=== PATIENT | male | born 1950 | race Hispanic/Latino ===

== ENCOUNTER 2017-09-29 09:53 | Observation (INO) | payer MEDICARE, BC ==
[2017-09-28 12:31] LABS: BASOPHILS % 0.7 % (0.0-1.0); EOSINOPHILS # (AUTO) 0.1 (0.0-0.4); EOSINOPHILS % 2.2 % (0.0-6.0); HEMATOCRIT 34.4 % (38.2-49.6); HEMOGLOBIN 11.4 g/dL (14.0-18.0); LYMPHOCYTES # (AUTO) 1.9 (1.0-3.2); LYMPHOCYTES % 32.2 % (18.0-39.1); MEAN CORPUSCULAR HEMOGLOBIN 30.4 pg (28-32); MEAN CORPUSCULAR HGB CONC 33.1 g/dL (31-35); MEAN CORPUSCULAR VOLUME 91.7 fL (81-99); MONOCYTES # (AUTO) 0.5 (0.2-0.8); MONOCYTES % 9.1 % (4.4-11.3); NEUTROPHILS # (AUTO) 3.2 (2.1-6.9); NEUTROPHILS % 55.6 % (38.7-80.0); PLATELET COUNT 99 x10e3/uL (140-360); RED BLOOD COUNT 3.75 x10e6/uL (4.3-5.7); RED CELL DISTRIBUTION WIDTH 14.1 % (11.7-14.4)
[2017-09-28 12:45] LABS: INR 1.21; PROTHROMBIN TIME 14.4 seconds (11.9-14.5)
[2017-09-28 12:54] LABS: ANION GAP 10.6 mmol/L (8-16); BLOOD UREA NITROGEN 16 mg/dL (7-26); BUN/CREATININE RATIO 14 (6-25); CALCIUM 9.5 mg/dL (8.4-10.2); CARBON DIOXIDE 24 mmol/L (22-29); CHLORIDE 108 mmol/L (98-107); CREATININE, SERUM 1.15 mg/dL (0.72-1.25); EST GLOMERULAR FILTRATION RATE > 60 ML/MIN (60-); GLUCOSE 213 mg/dL (74-118); POTASSIUM 4.6 mmol/L (3.5-5.1); SODIUM 138 mmol/L (136-145)
--- NOTE | 2017-09-28 12:58 | Diagnostic Imaging Report ---
PROCEDURE: Frontal and lateral views of the chest. COMPARISON: Chest 2 views 02/20/2015. INDICATIONS: PRE OPERATIVE CHEST X-RAY FOR C-SPINE SURGERY FINDINGS: Lines/tubes: None. Lungs: The lungs are well inflated and clear. There is no evidence of pneumonia or pulmonary edema. Pleura: There is no pleural effusion or pneumothorax. Heart and mediastinum: The heart and the mediastinum are normal. Bones: No acute bony abnormality. Degenerative changes of the thoracic spine. IMPRESSION: No acute radiographic abnormality. Dictated by: Alfredo Saucedo M.D. on 09/28/2017 at 12:59 Electronically approved by: Alfredo Saucedo M.D. on 09/28/2017 at 12:59
[~2017-09-29] VITALS: Ht 165.1 cm; Wt 83.7 kg
[~2017-09-29 09:53] MED LIST: ADVIL200 M1; BACITRACIN 50,000 UNIT VIAL ONE; BUPIVACAINE 0.5%/EPI 30 ML SDV INJ ONE; CEFAZOLIN SOD 1 GM VIAL ONE; CIPRO500 MG PO; FLOMAX0.4 MG PO; GELATIN SPONGE SZ 100 ONE; GERITOL COMPLE1 EACH PO; HAWTHORN PO; HAWTHORN150 MG; LOSARTAN POTAS100 MG PO; LOSARTAN POTASS25 MG PO; MEGA RED PO; METRONIDAZOLE500 MG PO; PRO-AIR PO; TERAZOSIN HCL1 MG PO; THROMBIN FOR SOLN 5,000 UNIT VIAL ONE
--- OUTSIDE RECORDS SUMMARY | 2017-09-29 09:55 | XMS REPORT ---
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 Allergies, Adverse Reactions, Alerts This patient has no known allergies or adverse reactions. Medications This patient has no known medications. Results Test Description Test Time Test Comments Text Results Atomic Results Result Comments CHEST 2 VIEWS [place] [address] Patient Name: SUSANA LINDER MR #: [id number] : 1950 Age/Sex: 66/M Req #: [id number] Adm Physician: Ordered by: VALENTIN RUST MD Report #: [id number] Location: OR Room/Bed: Procedure: [id number] DX/CHEST 2 VIEWS Exam Date: Exam Time: REPORT STATUS: Signed PROCEDURE: Frontal and lateral views of the chest. COMPARISON: Chest 2 views 02/20/2015. INDICATIONS: PRE OPERATIVE CHEST X-RAY FOR C-SPINE SURGERY FINDINGS: Lines/tubes: None. Lungs: The lungs are well inflated and clear. There is no evidence of pneumonia or pulmonary edema. Pleura: There is no pleural effusion or pneumothorax. Heart and mediastinum: The heart and the mediastinum are normal. Bones: No acute bony abnormality. Degenerative changes of the thoracic spine. IMPRESSION: No acute radiographic abnormality. Dictated by: José Miguel Saucedo M.D. on 09/28/2017 at 12:59 Electronically approved by: José Miguel Saucedo M.D. on 09/28/2017 at 12:59 Dictated By: JOSÉ MIGUEL SAUCEDO MD [id number] COPY TO: VALENTIN RUST MD
[2017-09-29] MEDS: LACTATED RINGER'S 1,000 ML IV SCH ×2 (12:16→20:36)
[2017-09-29] MEDS ORDERED: OXYCODONE/ACETAMINOPHEN 5-325 1 EACH TABLET PO PRN (12:30)
[2017-09-29] MEDS ORDERED: PROMETHAZINE HCL (IM) 25 MG/ML VIAL IM PRN (12:30)
[2017-09-29] MEDS ORDERED: HYDROMORPHONE 2MG/ML INJ IV PRN (12:30)
[2017-09-29] MEDS ORDERED: CARISOPRODOL 350 MG TAB PO PRN (12:30)
[2017-09-29] MEDS ORDERED: MORPHINE SULFATE 5 MG/ML VIAL IM PRN (12:30)
[2017-09-29] MEDS ORDERED: ONDANSETRON HCL INJ 2 MG/ML VIAL IV PRN (12:30)
[2017-09-29] MEDS ORDERED: MAGNESIUM/ALUMINUM/SIMETHICONE 30 ML UDC PO PRN (12:30)
[2017-09-29 13:58] VITALS: BP 132/70
[2017-09-29] MEDS ORDERED: CEFAZOLIN SOD 1 GM/NS 50ML 50 ML IV SCH (14:00)
[2017-09-29] MEDS: ACETAMINOPHEN 325 MG TAB PO PRN ×2 (14:03→23:27)
[2017-09-29] MEDS: CEPACOL SORE THROAT LOZENGES PO PRN ×2 (14:03→17:57)
[2017-09-29 15:31] VITALS: BP 132/70
[2017-09-29 15:51] VITALS: BP 132/70
[2017-09-29 15:57] VITALS: BP 132/70
[2017-09-29] MEDS ORDERED: ONDANSETRON HCL 4 MG ORAL DISINTEGRATING TAB SL PRN (16:00)
[2017-09-29] MEDS ORDERED: FENTANYL CITRATE/PF 100MCG/2 ML INJ ONE (16:55)
[2017-09-29] MEDS ORDERED: MIDAZOLAM HCL 2 MG/2 ML VIAL ONE (16:55)
[2017-09-29] MEDS ORDERED: LIDOCAINE HCL 2% LOCAL INJ 5 ML SDV VIAL INJ ONE (17:08)
[2017-09-29] MEDS ORDERED: ROCURONIUM BROMIDE 10 MG/ML 5ML VIAL IV ONE (17:08)
[2017-09-29] MEDS ORDERED: GLYCOPYRROLATE INJ 1MG/ 5 ML SYR IV ONE (17:08)
[2017-09-29] MEDS ORDERED: SEVOFLURANE INHAL SOLN 250 ML PEN BTL INH ONE (17:08)
[2017-09-29] MEDS ORDERED: ONDANSETRON HCL INJ 2 MG/ML VIAL IV ONE (17:08)
[2017-09-29] MEDS ORDERED: NEOSTIGMINE 5 MG/5ML SYR IV ONE (17:08)
[2017-09-29] MEDS ORDERED: EPHEDRINE SULFATE INJ 50 MG/10 ML SYR IV ONE (17:08)
[2017-09-29] MEDS ORDERED: DEXAMETHASONE SOD PHOS INJ 4 MG/ML VIAL IV ONE ×2 (17:08)
[2017-09-29] MEDS ORDERED: PROPOFOL IV EMULSION 10 MG/ML 20 ML VIAL IV ONE (17:08)
[2017-09-29] MEDS: CEFAZOLIN SOD 1 GM VIAL IV SCH (17:57)
--- NOTE | 2017-09-29 18:55 | Operative Report ---
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 POSTOPERATIVE DIAGNOSIS: C5-6 spondylosis and disk herniation with radiculopathy, M50.122. PROCEDURE 1. C5-6 anterior cervical diskectomy and microsurgical osteophyte resection and allograft fusion, 50089. 2. Preparation of [employer] cortical cancellous allograft, 05484. 3. C5-6 anterior cervical plating with Synthes ZPN plate, 77061. ANESTHESIA: General. INDICATIONS: The patient is a man who presents with a chronic C5-6 disk osteophyte complex producing central and bilateral foraminal stenosis symptomatic with chronic neck pain and a superimposed right C6 radiculopathy. He was taken to the operating room for anterior cervical decompression and fusion. PROCEDURE: After induction of general anesthesia the patient was placed on the operating table in supine position. The right side of the neck was prepped and draped in sterile fashion. The fluoroscopic C-arm was positioned in cross-table lateral orientation. The platysma was divided in line with the incision. A subplatysmal dissection was carried out. An avascular plane of dissection was developed medial to the sternocleidomastoid muscle and was followed medial to the carotid sheath to the anterior border of the cervical spine. The deep cervical fascia was opened. The esophagus was retracted to the left. The attachments of the longus coli muscles to the anterolateral aspects of vertebral bodies of C4 and C5 were divided. The anterior longitudinal ligament was resected. The anterior osteophyte was resected. [place] posts were inserted into C5 and C6 and the [place] distractor was used to distract the markedly degenerated disk space. The contents of this were evacuated with angled curets and pituitary rongeurs. The operating microscope was brought in. A high-speed drill equipped with a trina joseph was used to simultaneously drill the superior endplate of C6 and the inferior endplate of C5 to reestablish a disk space height. The posterior osteophytes were then meticulously drilled with a 2 mm cutting joseph until they were thinned down to a thin shell of cortical bone. This was then elevated away from the dura along with its attachments to the posterior longitudinal ligament and resected in piecemeal fashion with a 1 mm Kerr[place] rongeur. The medial aspects of the uncinate processes were resected bilaterally to further expose and decompress the origins of the C6 nerve roots bilaterally. The dura was nicely decompressed on the right and on the left side. Along the center of the dural exposure, a plate of osteophyte posterior longitudinal ligament was completely adherent to the dura and could not be dissected from the dura without risking a dural tear. Therefore this plate which was not at this point compressing, the dura was left in place. The endplates were then prepared for fusion. The disk space was sized and found to be 9 mm in height. A piece of MTF cortical cancellous allograft measuring 9 mm in thickness was selected and prepared in saline and loaded onto the Synthes ZPN plate. The construct was then inserted into the disk space under distraction and fluoroscopic guidance. The distraction was released and the distraction posts were removed. The plate was then screwed to the endplates of C5 and C6 with 2 pairs of 14-mm screws. All screws were locked. Construct was obtained. The wound was copiously irrigated with Bacitracin solution. Meticulous hemostasis was secured. Because of the patient's mild thrombocytopenia, a small Hemovac drain was placed over the plate and brought out through a separate stab incision. The platysma was closed with 3-0 Vicryl sutures. The skin was closed with 4-0 Monocryl sutures in subcuticular fashion. Steri-strips and dressing were applied. The patient was awakened, extubated and taken to the postanesthesia care unit in stable condition. No intraoperative complications were encountered. Estimated blood loss was 30 mL. VALENTIN RUST MD Job#: [id number] SAYDA
[2017-09-29 19:00] VITALS: BP 163/77
[2017-09-29 21:00] VITALS: BP 163/77
[2017-09-29] MEDS ORDERED: ZOLPIDEM TARTRATE 5 MG TAB PO PRN (21:00)
[2017-09-30] VITALS: BP 135/69
[2017-09-30] MEDS: CEFAZOLIN SOD 1 GM VIAL IV SCH ×2 (02:50→09:52)
[2017-09-30 04:00] VITALS: BP 122/59
[2017-09-30] MEDS: LACTATED RINGER'S 1,000 ML IV SCH (04:56)
[2017-09-30 08:12] VITALS: BP 143/72
[2017-09-30] MEDS ORDERED: LOSARTAN POTASSIUM 25 MG TAB PO SCH (09:00)
[2017-09-30] MEDS ORDERED: TAMSULOSIN HCL 0.4 MG CAP PO SCH (09:00)
[2017-09-30] MEDS ORDERED: NORCO 7.5-3251 EACH PO ×2 (09:44→09:45)
--- NOTE | 2017-09-30 11:26 | Diagnostic Imaging Report ---
PROCEDURE: X-RAY CERVICAL SPINE, TWO VIEWS COMPARISON:None. INDICATIONS:POST OP FOLLOW UP FINDINGS: See conclusion. CONCLUSION: AP and lateral views of the cervical spine from the skull base to T1 show anterior cervical spine surgical fusion of C5/C6 with intervertebral body disc spacer. The visualized vertebral bodies are well-aligned. There is mild pre-vertebral soft-tissue swelling consistent with recent surgery. Dictated by: Alfredo Saucedo M.D. on 09/30/2017 at 11:27 Electronically approved by: Alfredo Saucedo M.D. on 09/30/2017 at 11:27
== END 2017-09-30 10:35 | disposition home or self-care (01) ==
LOC: OR 09:53 → IMCU 13:12
PROVIDERS: ADMIT Neurological Surgery; ATTEND Neurological Surgery
DX: M50.122 Cervical disc disorder at C5-C6 level with radiculopathy (principal); I10 Essential (primary) hypertension; J45.909 Unspecified asthma, uncomplicated; K74.60 Unspecified cirrhosis of liver; D69.6 Thrombocytopenia, unspecified
CPT/HCPCS: 20931; 22551; 22845; 36415; 71046; 72040; 77003; 80048; 85025; 85610; 85730; 86850; 86900; 88304; 93005; G0378 ×2; J0690 ×2; J1100; J2001; J2250; J2405; J2270

== ENCOUNTER → 2017-10-27 | Outpatient (CLI) | payer MEDICARE, BC ==
[~2017-10-27] MED LIST changes: -BACITRACIN 50,000 UNIT VIAL ONE; -BUPIVACAINE 0.5%/EPI 30 ML SDV INJ ONE; -CEFAZOLIN SOD 1 GM VIAL ONE; -GELATIN SPONGE SZ 100 ONE; +NORCO 7.5-3251 EACH PO; -THROMBIN FOR SOLN 5,000 UNIT VIAL ONE
--- NOTE | 2017-10-27 12:46 | Diagnostic Imaging Report ---
PROCEDURE:SPINE CERVICAL AP\T\LAT FLEX\T\EXT TECHNIQUE:AP, lateral, flexion and extension views cervical spine INDICATION:Postoperative evaluation. Cervical disc herniation. COMPARISON:Patients [facility], DX, C-SPINE 2 VIEWS AP \T\ LATERAL, 09/30/2017, 6:16. FINDINGS: Cervical spine evaluated from the skull base through the cervicothoracic junction. Postoperative sequela of C5-C6 discectomy and anterior interbody fusion. No evidence of inducible malalignment or C5-C6 translation. Degenerative disc disease C4-C5 and C6-C7 with C5-C6 and C6-C7 facet arthropathy. The regional skeleton is intact. Normal paraspinal soft tissues. CONCLUSION: Postoperative sequela of discectomy and anterior interbody fusion and C-spine C6 without acute abnormality or evidence of inducible malalignment. Dictated by: Bolivar Carr M.D. on 10/27/2017 at 12:48 Electronically approved by: Bolivar Carr M.D. on 10/27/2017 at 12:48
== END ==
LOC: RAD 11:10
PROVIDERS: ATTEND Neurological Surgery
DX: M50.20 Other cervical disc displacement, unspecified cervical region (principal); Z98.1 Arthrodesis status
CPT/HCPCS: 72050

== ENCOUNTER → 2018-05-11 | Outpatient (CLI) | payer MEDICARE, BC ==
--- NOTE | 2018-05-11 11:25 | Diagnostic Imaging Report ---
Exam: Cervical spine, with flexion and extension views History: Assess cervical fusion status Comparison: None. Findings: Stable postsurgical findings of anterior fusion and disc spacer at C5-C6, with intact surgical hardware. Stable anterior osteophytosis at C6-7 and 3 mm anterolisthesis of C4 over C5, which is not exacerbated on flexion radiographs. Prevertebral soft tissues are of normal thickness. Soft tissue, ligamentous, and spinal cord abnormalities cannot be excluded on the basis of plain radiography. Impression: Stable postsurgical findings of the cervical spine, without inducible malalignment. Signed by: Dr. Yousif Vallecillo M.D. on 05/11/2018 11:22 AM
== END ==
LOC: RAD 10:15
PROVIDERS: ATTEND Neurological Surgery
DX: M50.20 Other cervical disc displacement, unspecified cervical region (principal); Z98.1 Arthrodesis status
CPT/HCPCS: 72050